=== PATIENT | male | born 1965 | race Caucasian/White ===

== ENCOUNTER 2017-07-12 11:58 | Emergency (ER) | payer BC ==
[2017-07-12 13:10] VITALS: BP 141/89
--- NOTE | 2017-07-12 14:14 | UC ---
General HPI - HPI Summary HPI Summary: Patient present with complaints of chest congestion, productive cough, and at night audible wheezing for at least two months. He denies dyspnea, chest pain, fever, chills, or leg pain. He denies any ill contacts. He also states he has patches of hair loss on the back of his head. - History of Current Complaint Chief Complaint: UCRespiratory Stated Complaint: HAIR LOSS COUGH WITH MUCOUS Time Seen by Provider: 07/12/17 13:38 Hx Obtained From: Patient Onset/Duration: Gradual Onset, Lasting Weeks Timing: Constant Onset Severity: Moderate Current Severity: Moderate - Allergy/Home Medications Allergies/Adverse Reactions: Allergies Allergy/AdvReac Type Severity Reaction Status Date / Time Penicillins Allergy Unknown Verified 07/12/17 13:04 Reaction Details Home Medications: Home Medications Lisinopril TAB* [Prinivil TAB 10 MG*] 1 tab PO DAILY 07/12/17 [History Confirmed 07/12/17] PMH/Surg Hx/FS Hx/Imm Hx Previously Healthy: Yes - Surgical History Surgical History: Yes Surgery Procedure, Year, and Place: ears - Social History Occupation: Employed Full-time Lives: With Family Alcohol Use: Weekly Alcohol Amount: weekends Substance Use Type: None Smoking Status (MU): Heavy Every Day Tobacco Smoker Type: Smokeless Tobacco Review of Systems Constitutional: Negative Skin: Other - patches of hair loss on back of head. Eyes: Negative ENT: Negative Respiratory: Cough Cardiovascular: Negative Gastrointestinal: Negative Genitourinary: Negative Motor: Negative Neurovascular: Negative Musculoskeletal: Negative All Other Systems Reviewed And Are Negative: Yes Physical Exam Triage Information Reviewed: Yes Appearance: Well-Appearing Vital Signs: Initial Vital Signs Temp 98.3 F 07/12/17 13:04 Pulse 68 07/12/17 13:04 Resp 18 07/12/17 13:04 BP 141/89 07/12/17 13:04 Pulse Ox 99 07/12/17 13:04 Vital Signs Reviewed: Yes Eye Exam: Normal ENT Exam: Normal Neck exam: Normal Respiratory: Positive: Rhonchi Cardiovascular Exam: Normal Abdominal Exam: Normal Skin Exam: Other - back on head; inspection; irregular shaped in various sizes that are mold cleaner skin color, smooth to touch, no flaking , scaling, or raised border. Course/Dx - Course Course Of Treatment: Patient presents with two complaints, cough chest congestion consisent with URI for which he was treated with zpak, albuterol and prednisone. And hair loss, for which initial labs were drawn erik, rpr which are pending. Patient was referred to dermatolgy as follow up. - Differential Dx - Multi-Symptom Differential Diagnoses: Other - bronchitis hair loss Provider Diagnoses: bronchitis. hair loss Discharge - Discharge Plan Condition: Stable Disposition: HOME Prescriptions: Albuterol HFA INHALER* [Ventolin HFA Inhaler*] 1 puff INH Q4H PRN #1 mdi PRN Reason: Cough DOXYcycline CAP(*) [DOXYcycline 100MG CAP(*)] 100 mg PO BID #20 cap predniSONE TAB* [Deltasone TAB*] 20 mg PO DAILY #5 tab Patient Education Materials: Acute Bronchitis (ED), Chronic Alopecia (ED) Referrals: Corinna Calderon [Medical Doctor] -
== END 2017-07-12 14:33 | disposition home or self-care (01) ==
LOC: UCEAST 11:58
DX: J40 Bronchitis, not specified as acute or chronic (principal); Z88.0 Allergy status to penicillin; F17.200 Nicotine dependence, unspecified, uncomplicated; L65.9 Nonscarring hair loss, unspecified
CPT/HCPCS: 99202; G0463